=== PATIENT | female | born 1955 | race Caucasian/White ===

== ENCOUNTER 2021-01-22 10:16 | Day surgery (SDC) | payer BC, SELFPAY ==
[~2021-01-22] VITALS: Ht 160 cm; Wt 59.0 kg
[2021-01-22] MEDS ORDERED: LR 1,000 ML IV.SOLN IV ONE (12:02)
[2021-01-22] MEDS ORDERED: ePHEDrine sulfate 50 MG/ML VIAL IVP ONE (12:02)
[2021-01-22] MEDS ORDERED: SUGAMMADEX SODIUM 200 MG/2 ML VIAL IV ONE (12:02)
[2021-01-22] MEDS ORDERED: DEXAMETHASONE SOD PHOSPHATE 4 MG/ML VIAL IVP ONE (12:02)
[2021-01-22] MEDS ORDERED: WATER FOR IRRIGATION,STERILE 1,000 ML IRRIG.SOLN IR ONE (12:02)
[2021-01-22] MEDS ORDERED: ROCURONIUM BROMIDE 10 MG/ML (ZEMURON) IV ONE (12:02)
[2021-01-22] MEDS ORDERED: BACITRACIN 1 GM OINT TP ONE (12:02)
[2021-01-22] MEDS ORDERED: LIDOCAINE/EPI 1% 1:100000 20 ML VIAL INJ ONE (12:02)
[2021-01-22] MEDS ORDERED: DESFLURANE 15 MIN GAS INH ONE (12:02)
[2021-01-22] MEDS ORDERED: fentaNYL CITRATE/PF 100 MCG/2 ML AMP IVP ONE (12:02)
[2021-01-22] MEDS ORDERED: ONDANSETRON HCL 4 MG/2 ML VIAL IVP ONE (12:02)
[2021-01-22] MEDS ORDERED: MIDAZOLAM HCL 5 MG/5 ML VIAL IVP ONE (12:02)
[2021-01-22] MEDS ORDERED: OXYMETAZOLINE HCL 0.05% NASAL SPRAY NS ONE (12:02)
[2021-01-22] MEDS ORDERED: PROPOFOL 200MG/ 20ML VIAL (DIPRIVAN) IV ONE (12:02)
[2021-01-22] MEDS ORDERED: LIDOCAINE MPF 2% 5mL VIAL INJ ONE (12:02)
[2021-01-22] MEDS ORDERED: LR 1,000 ML IV SCH (13:00)
[2021-01-22] MEDS ORDERED: MIDAZOLAM HCL 2 MG/2 ML VIAL (VERSED) IVP PRN (13:00)
[2021-01-22] MEDS ORDERED: LABETALOL 100 MG/ 20ML VIAL IVP PRN (13:00)
[2021-01-22] MEDS ORDERED: METOCLOPRAMIDE HCL 10 MG/2 ML VIAL IVP PRN (13:00)
[2021-01-22] MEDS ORDERED: hydrALAZINE HCL 20 MG/ML VIAL IVP PRN (13:00)
[2021-01-22] MEDS ORDERED: HYDROmorphone 1 MG/ML INJ. CARTRIDGE IVP PRN ×2 (13:00)
[2021-01-22] MEDS ORDERED: MEPERIDINE HCL/PF 25 MG/ML DISP.SYRIN IVP PRN (13:00)
[2021-01-22 15:28] VITALS: BP_SYST 126
== END 2021-01-22 16:15 | disposition home or self-care (01) ==
LOC: SDS 10:16 → STU 10:19 → SDS 16:15
PROVIDERS: ATTEND Otolaryngology
DX: J34.89 Other specified disorders of nose and nasal sinuses (principal); D38.5 Neoplasm of uncertain behavior of other respiratory organs; J30.1 Allergic rhinitis due to pollen; J34.2 Deviated nasal septum; E78.5 Hyperlipidemia, unspecified; M13.0 Polyarthritis, unspecified; H92.03 Otalgia, bilateral; Z79.899 Other long term (current) drug therapy; Z20.822 Contact with and (suspected) exposure to COVID-19
CPT/HCPCS: 30140; 30520; 31255; 31256; 31298; 88305; 88311; C1726; J1100; J2001; J2250; J2405; J2704; J3010; J3490; J7120; U0003; 88304; G0378